=== PATIENT | female | born 1970 | race Caucasian/White ===

== ENCOUNTER → 2017-08-17 | Outpatient (CLI) | payer OTHER, MEDICAID ==
--- NOTE | 2017-08-18 17:04 | MG ---
HISTORY: SCREENING Comparison: None FINDINGS: Bilateral CC and MLO projections of the right and left breast were obtained. Heterogeneously dense f ibroglandular tissue is seen to be present. The left breast demonstrates no mass, architectural dist ortion, or suspicious clustered microcalcifications. On the right, there are regions of focal asymmet ry in the upper medial quadrant which may reflect benign asymmetrical fibroglandular parenchyma but f or which further imaging evaluation is recommended given the lack of previous exams to document stabi lity. Additionally, there is a small grouping of microcalcifications in the upper outer quadrant righ t breast for which further imaging evaluation is recommended. No skin thickening or nipple retractio n is appreciated. No pathological lymphadenopathy can be identified. IMPRESSION: Right breast focal asymmetry for which follow-up spot compression and possibly ultrasound are recomme nded. Right breast microcalcifications for which follow-up spot magnification and mL views are recommended. ACR CATEGORY 0 - assessment incomplete; additional imaging recommended. Diagnostic CAD was utilized and reviewed. * 0 (ZERO) - ASSESSMENT INCOMPLETE; ADDITIONAL IMAGING IS NEEDED. * 1/1 (ONE) - NEGATIVE. * 2/II (TWO) - BENIGN FINDINGS. * 3/III (THREE) - PROBABLY BENIGN FINDING; SHORT INTERVAL FOLLOW-UP SUGGESTED. * 4/IV (FOUR) - SUSPICIOUS ABNORMALITY; BIOPSY SHOULD BE CONSIDERED. * 5/V - HIGHLY SUSPICIOUS OF MALIGNANCY; BIOPSY SHOULD BE PERFORMED. A NEGATIVE X-RAY REPORT SHOULD NOT DELAY BIOPSY IF A DOMINANT OR CLINICALLY SUSPICIOUS MASS IS PRESENT; 4 TO 8 PERCENT OF CANCERS ARE NOT IDENTIFIED BY X-RAY. A NEGA TIVE REPORT MAY REINFORCE THE CLINICAL IMPRESSION. ADENOSIS AND DENSE BREASTS MAY OBSCURE AN UNDERLY ING NEOPLASM. Reported By:
== END ==
LOC: RAD 14:40
PROVIDERS: ATTEND Nurse Practitioner Family
DX: Z12.31 Encounter for screening mammogram for malignant neoplasm of breast (principal)
CPT/HCPCS: 77067

== ENCOUNTER → 2017-09-06 | Outpatient (CLI) | payer OTHER, MEDICAID ==
--- NOTE | 2017-09-06 14:26 | US ---
HISTORY: Abnormal baseline screening mammography with right breast microcalcifications and focal asy mmetry Right breast digital diagnostic mammography with CAD and right breast ultrasound. Comparison: August 17, 2017 FINDINGS: Mammogram: ML as well as spot compression and spot magnification CC and MLO projections of the right breast were obtained. Heterogeneously dense fibroglandular tissue is seen to be present. Previously described focal asymmetry becomes less prominent with intervening foci of lucency suggesting benign fibroglandular parenchyma but which will be correlated with ultrasound to exclude an underlying suspi cious occult lesion. Right breast microcalcifications are mildly pleomorphic and indeterminate. No s kin thickening or nipple retraction is appreciated. No pathological lymphadenopathy can be identifi ed. Ultrasound: Multiple grayscale and color Doppler images of the superior right breast were obtained fr om 9-3 o'clock. At 11 o'clock approximately 3 cm from the nipple, there is a horizontally oriented ma medical technologist microbiology lobulated but smoothly marginated and well circumscribed 6 mm anechoic cyst with posterior acoust ical enhancement and no internal Doppler flow with surrounding dense fibrocystic changes and without a peripheral nodular component most compatible with a benign simple parenchymal cysts. There is no coles spicious solid mass. IMPRESSION: Indeterminate right breast microcalcifications for which stereotactic biopsy is recommen ded. Regardless of pathologic results, six-month follow-up bilateral mammography is recommended to d ocument stability and establish a baseline. ACR CATEGORY 4 - suspicious abnormality; biopsy should be performed. Diagnostic CAD was utilized and reviewed. * 0 (ZERO) - ASSESSMENT INCOMPLETE; ADDITIONAL IMAGING IS NEEDED. * 1/1 (ONE) - NEGATIVE. * 2/II (TWO) - BENIGN FINDINGS. * 3/III (THREE) - PROBABLY BENIGN FINDING; SHORT INTERVAL FOLLOW-UP SUGGESTED. * 4/IV (FOUR) - SUSPICIOUS ABNORMALITY; BIOPSY SHOULD BE CONSIDERED. * 5/V - HIGHLY SUSPICIOUS OF MALIGNANCY; BIOPSY SHOULD BE PERFORMED. A NEGATIVE X-RAY REPORT SHOULD NOT DELAY BIOPSY IF A DOMINANT OR CLINICALLY SUSPICIOUS MASS IS PRESENT; 4 TO 8 PERCENT OF CANCERS ARE NOT IDENTIFIED BY X-RAY. A NEGA TIVE REPORT MAY REINFORCE THE CLINICAL IMPRESSION. ADENOSIS AND DENSE BREASTS MAY OBSCURE AN UNDERLY ING NEOPLASM. Reported By:
== END ==
LOC: RAD 12:31
PROVIDERS: ATTEND Nurse Practitioner Family
DX: R92.8 Other abnormal and inconclusive findings on diagnostic imaging of breast (principal); R92.0 Mammographic microcalcification found on diagnostic imaging of breast
CPT/HCPCS: 76642; 77065